=== PATIENT | male | born 1995 | race Caucasian/White ===

== ENCOUNTER 2018-08-24 23:12 | Emergency (ER) | payer MEDICARE, BC ==
[2018-08-24] MEDS ORDERED: NS 1,000 ML IV ONE (23:30)
[2018-08-24 23:34] LABS: BASO % 0.6 % (0.0-1.0); EOS # 0.1 10^3/uL (0.0-0.50); HEMATOCRIT 45.2 % (42.0-52.0); HEMOGLOBIN 15.4 g/dl (13.5-17.5); LYMPH # 2.3 10^3/uL (1.5-6.5); LYMPH % 35.6 % (24.0-44.0); MEAN CORPUSCULAR HEMOGLOBIN 29.8 pg (27.0-33.0); MEAN CORPUSCULAR HGB CONC 34.1 g/dl (32.0-36.5); MEAN CORPUSCULAR VOLUME 87.6 fl (80.0-96.0); MONO # 0.5 10^3/uL (0.0-0.8); MONO % 7.5 % (0.0-5.0); NEUTROPHILS # 3.5 10^3/uL (1.8-7.7); PLATELET COUNT, AUTOMATED 254 10^3/uL (150-450); RED BLOOD COUNT 5.16 10^6/uL (4.30-6.10); WHITE BLOOD COUNT 6.4 10^3/uL (4.0-10.0)
[2018-08-25] MEDS ORDERED: LORA1SOL PO (00:04)
[2018-08-25] MEDS ORDERED: QUET1TAB10 PO (00:04)
[2018-08-25] MEDS ORDERED: LAMO10TA PO (00:04)
[2018-08-25] MEDS ORDERED: SING4CHW9 PO (00:04)
[2018-08-25] MEDS ORDERED: FLON1SPR NARES (00:04)
[2018-08-25 00:07] LABS: BLOOD UREA NITROGEN 5 MG/DL (7-18); CALCIUM LEVEL 8.8 MG/DL (8.5-10.1); CARBON DIOXIDE LEVEL 24 MEQ/L (21-32); CHLORIDE LEVEL 112 MEQ/L (98-107); CREATININE FOR GFR 0.85 MG/DL (0.70-1.30); ETHYL ALCOHOL (ETHANOL) 0.125 % (0.000-0.010); GLOMERULAR FILTRATION RATE > 60.0 (>60); GLUCOSE, FASTING 99 MG/DL (70-100); POTASSIUM SERUM 3.6 MEQ/L (3.5-5.1); SODIUM LEVEL 146 MEQ/L (136-145)
--- NOTE | 2018-08-25 00:10 | REPVR ---
EXAM: CT Head Without Contrast EXAM DATE/TIME: 08/24/2018 11:20 PM CLINICAL HISTORY: 23 years old, male; Signs and symptoms; Altered mental status/memory loss; Confusion or disorientation; Patient HX: Seizure, autistic; Additional info: Seizures TECHNIQUE: Axial computed tomography images of the head/brain without contrast. All CT scans at this facility use at least one of these dose optimization techniques: automated exposure control; mA and/or kV adjustment per patient size (includes targeted exams where dose is matched to clinical indication); or iterative reconstruction. COMPARISON: No relevant prior studies available. FINDINGS: Brain: Normal. No hemorrhage. No significant white matter disease. No edema. Ventricles: Normal. No ventriculomegaly. Bones/joints: Normal. No acute fracture. Sinuses: Normal as visualized. No acute sinusitis. Mastoid air cells: Normal as visualized. No mastoid effusion. Soft tissues: Normal. IMPRESSION: No acute intracranial abnormality. Electronically signed by: Dusty Rodriguez On 08/25/2018 00:10:36 AM
[2018-08-25 00:18] LABS: AMPHETAMINES LEVEL URINE NEGATIVE (NEGATIVE); BARBITURATES URINE NEGATIVE (NEGATIVE); BENZODIAZEPINES URINE NEGATIVE (NEGATIVE); CANNABINOIDS URINE NEGATIVE (NEGATIVE); COCAINE METABOLITE URINE NEGATIVE (NEGATIVE); METHADONE URINE NEGATIVE (NEGATIVE); OPIATES URINE NEGATIVE (NEGATIVE); PHENCYCLIDINE URINE NEGATIVE (NEGATIVE)
[2018-08-25 03:30] VITALS: BP 146/83
--- NOTE | 2018-08-25 07:33 | REP ---
Clinical: Seizure . Comparison: None . Findings: The mediastinum and cardiac silhouette are stable and within normal limits for portable technique. The lung schaefer are clear without acute consolidation, effusion, or pneumothorax. Skeletal structures are intact. Impression: No acute cardiopulmonary process appreciated. Electronically Signed by Darren Davis MD 08/25/2018 07:25 A
== END 2018-08-25 03:51 | disposition home or self-care (01) ==
LOC: M ED 23:12 → EDBD 23:12 → M ED 08-25 03:51
DX: G40.89 Other seizures (principal); F10.229 Alcohol dependence with intoxication, unspecified; F84.0 Autistic disorder; Z79.899 Other long term (current) drug therapy; Z88.1 Allergy status to other antibiotic agents; F17.210 Nicotine dependence, cigarettes, uncomplicated
CPT/HCPCS: 36415; 70450; 71045; 80048; 80175; 80307; 85025; 93041; 94760; 99285; G0480